=== PATIENT | male | born 1970 | race Caucasian/White ===

== ENCOUNTER → 2016-12-16 | Outpatient (CLI) | payer BC ==
[~2016-12-16] MED LIST: ATIVAN0.5 MG PO
== END | disposition home or self-care (01) ==
LOC: CDC 10:58
DX: Z01.810 Encounter for preprocedural cardiovascular examination (principal); K42.9 Umbilical hernia without obstruction or gangrene
CPT/HCPCS: 93000

== ENCOUNTER 2016-12-26 06:41 | Day surgery (SDC) | payer BC ==
[~2016-12-26] VITALS: Ht 182.9 cm; Wt 117.9 kg
[~2016-12-26 06:41] MED LIST changes: +DIOVAN HCT 31 TABLE1 PO; +MEVACOR40 MG PO; +ZOLOFT25 MG PO
[2016-12-26 07:13] VITALS: BP 142/80
[2016-12-26] MEDS ORDERED: NORCO 5/3251 TABLET PO (10:26)
[2016-12-26 11:28] VITALS: BP 135/63
[2016-12-26 12:35] VITALS: BP 130/76
[2016-12-26 15:00] VITALS: BP 133/82
== END 2016-12-26 15:00 | disposition home or self-care (01) ==
LOC: SDC
PROC: 0WUF4JZ Supplement Abdominal Wall with Synthetic Substitute, Percutaneous Endoscopic Approach (ICD-10-PCS; principal; 2016-12-26)
DX: K43.9 Ventral hernia without obstruction or gangrene (principal); E11.9 Type 2 diabetes mellitus without complications; I10 Essential (primary) hypertension; E78.5 Hyperlipidemia, unspecified; F41.9 Anxiety disorder, unspecified; E05.00 Thyrotoxicosis with diffuse goiter without thyrotoxic crisis or storm; Z82.49 Family history of ischemic heart disease and other diseases of the circulatory system; Z83.3 Family history of diabetes mellitus; Z87.891 Personal history of nicotine dependence
CPT/HCPCS: C1781; J0330; J0690; J1170; J1885; J2250; J2405; J2710; J3010